=== PATIENT | female | born 1945 | race Asian ===

== ENCOUNTER 2023-02-11 18:34 | Inpatient (IN) | payer MEDICARE, OTHER ==
[~2023-02-11] VITALS: Ht 167.6 cm; Wt 72.6 kg
[~2023-02-11 18:34] MED LIST: ETOMIDATE 20 MG/ 10 ML VIAL (AMIDATE) ONE; SUCCINYLCHOLINE CHLORIDE 20 MG/ML(QUELICIN) ONE
[2023-02-11 18:49] VITALS: BP_SYST 150; PULSE 121; RESP 26; TEMP 98.3; O2SAT 80
[2023-02-11] MEDS ORDERED: fentaNYL CITRATE/PF 100 MCG/2 ML AMP IVP ONE (19:00)
[2023-02-11] MEDS ORDERED: PROPOFOL DRIP 100 ML IV ONE (19:00)
[2023-02-11] MEDS ORDERED: IPRATROPIUM BROM 0.5 MG/2.5 ML VIAL.NEB (ATROVENT) INH ONE (19:12)
[2023-02-11] MEDS ORDERED: ALBUTEROL SULFATE 0.083% 2.5 MG/3 ML VIAL.NEB INH ONE (19:12)
[2023-02-11 19:22] LABS: COVID19 ANTIGEN SOFIA FIA NEGATIVE (NEGATIVE)
[2023-02-11] MEDS ORDERED: NACL 0.9% 1,000 ML IV ONE ×3 (19:30→21:15)
[2023-02-11] MEDS ORDERED: AZITHROMYCIN 500 MG in NS 250 ML IV SCH (19:30)
[2023-02-11 19:33] LABS: INFLUENZA TYPE A Negative (NEGATIVE); INFLUENZA TYPE B NEGATIVE (NEGATIVE)
[2023-02-11 19:40] LABS: HEMOGLOBIN 11.3 g/dL (12.0-16.0); WHITE BLOOD COUNT (AUTO) 26.6 K/uL (4.8-10.8)
[2023-02-11 19:48] LABS: HEMATOCRIT 38.4 % (36-48); MEAN CORPUSCULAR HEMOGLOBIN 27 pg (27-31); MEAN CORPUSCULAR HGB CONC 30 % (32-36); MEAN CORPUSCULAR VOLUME 92 fL (79.0-98.0); PLATELET COUNT (AUTO) 494 K/uL (130-430); RED BLOOD CELL COUNT(AUTO) 4.19 MIL/uL (4.2-6.2); RED CELL DISTRIBUTION WIDTH 16.4 % (9.0-15.0)
[2023-02-11] MEDS ORDERED: AZITHROMYCIN 500 MG/VIAL (ZITHROMAX) IV ONE (19:49)
[2023-02-11] MEDS ORDERED: cefTRIAXone 2 GM VIAL ONE (19:49)
[2023-02-11 19:50] LABS: ANION GAP 16 (5-15); CALCIUM 8.7 mg/dL (8.4-11.0); CARBON DIOXIDE 20 mmol/L (23-29); CHLORIDE 102 mmol/L (98-107); CREATININE 1.49 mg/dL (0.55-1.30); GLUCOSE 263 mg/dL (74-106); POTASSIUM 4.3 mmol/L (3.5-5.1); SODIUM SERUM 138 mmol/L (136-145); UREA NITROGEN, BLOOD 18 mg/dL (8-21)
[2023-02-11 19:59] LABS: BLOOD GAS HCO3 19.2 mmol/L (21.0-27.0); BLOOD GAS PCO2 41.5 mmHg (35.0-45.0); BLOOD GAS PH 7.283 (7.350-7.450); BLOOD GAS PO2 109.6 mmHg (75.0-100.0)
[2023-02-11 20:00] LABS: ABG O2 SAT% ESTIMATE 97.5 % (94.0-100.0); ALLEN'S TEST POSITIVE (P); BLOOD GAS BASE EXCESS -7.1 mmol/L (-3.0-3.0)
[2023-02-11 20:02] LABS: INR 1.7 (0.8-1.2); PROTHROMBIN TIME 17.4 SECS (9.5-12.5)
[2023-02-11 20:17] LABS: ANISOCYTOSIS 1+; BAND % (MANUAL) 8 % (0-6); BASOPHILS % (MANUAL) 0 % (0-2); EOSINOPHILS % (MANUAL) 1 % (0-7); LYMPHOCYTES % (MANUAL) 15 % (20-46); MONOCYTES % (MANUAL) 7 % (0-11); OVALOCYTES MODERATE; PLATELET ESTIMATE INCREASED (ADEQUATE); POLYCHROMASIA 1+; TEAR DROP CELLS FEW
[2023-02-11 20:31] LABS: ALANINE AMINOTRANSFERASE 23 U/L (12-78); ALBUMIN 3.4 g/dL (3.4-4.8); ASPARTATE AMINOTRANSFERASE 26 U/L (10-37); CREATINE KINASE, TOTAL 91 U/L (26-192); TOTAL BILIRUBIN 0.5 mg/dL (0.0-1.0); TOTAL PROTEIN, SERUM 8.2 g/dL (6.4-8.3)
[2023-02-11] MEDS ORDERED: AZITHROMYCIN 500 MG in NS 250 ML IV ONE (20:45)
[2023-02-11] MEDS ORDERED: METHYLPREDNISOLONE SOD SUCC 40 MG/ML VIAL IVP ONE (21:00)
[2023-02-11] MEDS ORDERED: IPRATROPIUM/ALBUTEROL SULFATE 3 ML AMPUL.NEB (DUONEB) INH ONE (21:00)
[2023-02-11] MEDS ORDERED: LORazepam 2 MG/ML VIAL ONE (21:09)
[2023-02-11] MEDS ORDERED: NS 250 ML IV ONE (21:15)
[2023-02-11] MEDS ORDERED: NOREPINEPHRINE 4 MG/4 ML VIAL IV ONE (21:24)
[2023-02-11] MEDS ORDERED: DIGOXIN 0.5 MG/2 ML AMP IVP ONE (21:30)
[2023-02-11] MEDS ORDERED: GLUCOSE (DEXTROSE) ORAL GEL -Adults PO PRN (21:30)
[2023-02-11] MEDS ORDERED: DEXTROSE 50% JECT 50 ML DISP.SYRIN IVP PRN (21:30)
[2023-02-11] MEDS ORDERED: D5W 1,000 ML IV PRN (21:30)
[2023-02-11] MEDS ORDERED: PRAD75 PO (21:33)
[2023-02-11] MEDS ORDERED: LIP40 PO (21:33)
[2023-02-11] MEDS ORDERED: METF-379 PO (21:33)
[2023-02-11] MEDS ORDERED: FURO-150 PO (21:33)
[2023-02-11] MEDS ORDERED: CALC200T56 PO (21:33)
[2023-02-11] MEDS ORDERED: METO25TA6 PO (21:33)
[2023-02-11] MEDS ORDERED: GLIP10TA11 PO (21:33)
[2023-02-11] MEDS ORDERED: VITA1CAP PO (21:33)
[2023-02-11] MEDS ORDERED: DILT60TA3 PO (21:33)
[2023-02-11] MEDS ORDERED: EMPA25TA PO (21:34)
[2023-02-11] MEDS: NOREPINEPHRINE BITARTRATE 4 MG in D5W 246 ML IV PRN (21:40)
[2023-02-11] MEDS ORDERED: ACETAMINOPHEN 650 MG/20.3 ML UDC GT PRN (21:45)
[2023-02-11] MEDS ORDERED: ACETAMINOPHEN 650 MG SUPP.RECT RC PRN (21:45)
[2023-02-11] MEDS ORDERED: PIPERACILLIN/TAZO 3.375 GM in NS 50 ML IV ONE (22:00)
[2023-02-11] MEDS ORDERED: NOREPINEPHRINE BITARTRATE 4 MG in D5W 246 ML IV PRN (22:00)
[2023-02-11 22:12] VITALS: BP_SYST 90; PULSE 125; RESP 27; TEMP 99.2; O2SAT 97
[2023-02-11 22:18] VITALS: BP_SYST 57; PULSE 86; O2SAT 97
[2023-02-11 22:21] VITALS: PULSE 109
[2023-02-11 22:30] VITALS: BP_SYST 90; PULSE 125; RESP 27; TEMP 99.2; O2SAT 97
[2023-02-11] MEDS: METHYLPREDNISOLONE SOD SUCC 40 MG/ML VIAL IVP SCH (22:58)
[2023-02-11 23:00] VITALS: BP_SYST 102; PULSE 116; RESP 26; O2SAT 100
[2023-02-11 23:12] LABS: INR 1.7 (0.8-1.2); PROTHROMBIN TIME 17.3 SECS (9.5-12.5)
[2023-02-11] MEDS: IPRATROPIUM/ALBUTEROL SULFATE 3 ML AMPUL.NEB (DUONEB) INH SCH (23:35)
[2023-02-11] MEDS: PROPOFOL DRIP 100 ML IV PRN (23:42)
[2023-02-11 23:45] LABS: BLOOD GAS PCO2 30.2 mmHg (35.0-45.0); BLOOD GAS PH 7.341 (7.350-7.450); BLOOD GAS PO2 146.3 mmHg (75.0-100.0)
[2023-02-11 23:46] LABS: ABG O2 SAT% ESTIMATE 98.8 % (94.0-100.0); ALLEN'S TEST Y (P); BLOOD GAS BASE EXCESS -8.3 mmol/L (-3.0-3.0)
[2023-02-12] VITALS (36 sets, daily range): BP systolic 90–132; PULSE 71–125; RESP 14–28; TEMP 98.5–99.2; O2SAT 95–100
[2023-02-12] MEDS ORDERED: PIPERACILLIN/TAZOBACTAM 3.375 GM/VIAL (ZOSYN) IV ONE (00:14)
[2023-02-12] MEDS ORDERED: SODIUM BICARBONATE 8.4% JECT 50 MEQ/50 ML SYRINGE IVP ONE ×2 (00:15)
[2023-02-12] MEDS: NACL 0.9% 1,000 ML IV SCH ×2 (01:11→09:01)
[2023-02-12] MEDS: PIPERACILLIN/TAZO 3.375/DEX-IS 50 ML IV SCH ×5 (01:11→23:19)
[2023-02-12] MEDS: INSULIN REGULAR, HUMAN 100 UNITS/ML, 3 ML VIAL (humuLIN R) SUBCUT PRN ×5 (01:14→23:24)
[2023-02-12] MEDS: IPRATROPIUM/ALBUTEROL SULFATE 3 ML AMPUL.NEB (DUONEB) INH SCH ×5 (03:50→23:23)
[2023-02-12] MEDS ORDERED: NOREPINEPHRINE 4 MG/4 ML VIAL IV ONE (04:17)
[2023-02-12] MEDS: dilTIAZem HCL IVP 5 MG/ML VIAL IVP PRN (04:24)
[2023-02-12] MEDS: METHYLPREDNISOLONE SOD SUCC 40 MG/ML VIAL IVP SCH ×4 (04:24→20:37)
[2023-02-12] MEDS: PROPOFOL DRIP 100 ML IV PRN ×3 (04:54→21:08)
[2023-02-12] MEDS: NOREPINEPHRINE BITARTRATE 4 MG in D5W 246 ML IV PRN (04:54)
[2023-02-12 05:22] LABS: BASOPHILS # (AUTO) 0.2 K/uL (0.0-0.2); BASOPHILS % (AUTO) 0.8 % (0.0-2.0); HEMATOCRIT 34.1 % (36-48); HEMOGLOBIN 10.5 g/dL (12.0-16.0); LYMPHOCYTES # (AUTO) 0.3 K/uL (1.0-5.5); LYMPHOCYTES % (AUTO) 1.5 % (20.5-51.5); MEAN CORPUSCULAR HEMOGLOBIN 27 pg (27-31); MEAN CORPUSCULAR HGB CONC 31 % (32-36); MEAN CORPUSCULAR VOLUME 88 fL (79.0-98.0); MONOCYTES # (AUTO) 0.2 K/uL (0.0-1.0); MONOCYTES % (AUTO) 1.1 % (1.7-9.3); NEUTROPHILS # (AUTO) 18.3 K/uL (1.8-7.7); NEUTROPHILS % (AUTO) 96.6 % (40.0-70.0); PLATELET COUNT (AUTO) 402 K/uL (130-430); RED BLOOD CELL COUNT(AUTO) 3.87 MIL/uL (4.2-6.2); RED CELL DISTRIBUTION WIDTH 16.5 % (9.0-15.0); WHITE BLOOD COUNT (AUTO) 18.9 K/uL (4.8-10.8)
[2023-02-12 05:40] LABS: INR 1.4 (0.8-1.2); PROTHROMBIN TIME 14.4 SECS (9.5-12.5)
[2023-02-12 05:50] LABS: ALANINE AMINOTRANSFERASE 23 U/L (12-78); ANION GAP 17 (5-15); ASPARTATE AMINOTRANSFERASE 23 U/L (10-37); CALCIUM 8.1 mg/dL (8.4-11.0); CARBON DIOXIDE 20 mmol/L (23-29); CHLORIDE 103 mmol/L (98-107); CREATININE 1.39 mg/dL (0.55-1.30); GLUCOSE 314 mg/dL (74-106); PHOSPHORUS 3.9 mg/dL (2.7-4.5); POTASSIUM 3.7 mmol/L (3.5-5.1); SODIUM SERUM 140 mmol/L (136-145); TOTAL BILIRUBIN 0.9 mg/dL (0.0-1.0); TOTAL PROTEIN, SERUM 6.9 g/dL (6.4-8.3); UREA NITROGEN, BLOOD 18 mg/dL (8-21)
[2023-02-12] MEDS ORDERED: *LOVENOX 1MG/KG Q12H/PHARMACY XX PRN (08:00)
[2023-02-12] MEDS ORDERED: ENOXAPARIN SODIUM 80 MG/0.8 ML SYRINGE SUBCUT SCH (09:00)
[2023-02-12] MEDS ORDERED: DEXTROSE 50% JECT 50 ML DISP.SYRIN IVP PRN (11:45)
[2023-02-12] MEDS ORDERED: DILTIAZEM HCL 60 MG TABLET PO ONE (12:00)
[2023-02-12 14:17] LABS: BILIRUBIN,URINE NEGATIVE (NEGATIVE); BLOOD, URINE NEGATIVE (NEGATIVE); CLARITY/URINE CLEAR (CLEAR); COLOR,URINE YELLOW (YELLOW); GLUCOSE,URINE 3+ (NEGATIVE); KETONES,URINE 2+ (NEGATIVE); LEUKOCYTE ESTERASE ,URINE NEGATIVE (NEGATIVE); NITRITE, URINE NEGATIVE (NEGATIVE); PH,URINE 5.5 (5.0-8.0); PROTEIN URINE NEGATIVE (NEGATIVE); UROBILINOGEN,URINE 0.2 (0.2-1.0)
[2023-02-12 14:45] LABS: BACTERIA,URINE None Seen /HPF (None Seen); RBC,URINE 0-3 /HPF (0-3)
[2023-02-12] MEDS: DILTIAZEM HCL 60 MG TABLET PO SCH ×2 (15:13→20:36)
[2023-02-12] MEDS: AZITHROMYCIN 250 MG in NS 250 ML IV SCH (20:37)
[2023-02-12] MEDS ORDERED: DABIGATRAN ETEXILATE MESYLATE 75 MG CAPSULE PO ONE (21:00)
[2023-02-12] MEDS ORDERED: METOPROLOL TARTRATE 25 MG TABLET PO SCH (21:00)
[2023-02-13] VITALS (35 sets, daily range): BP systolic 93–124; PULSE 76–127; RESP 14–27; TEMP 96.8–98; O2SAT 91–98
[2023-02-13] MEDS: NACL 0.9% 1,000 ML IV SCH ×2 (00:58→05:45)
[2023-02-13] MEDS: IPRATROPIUM/ALBUTEROL SULFATE 3 ML AMPUL.NEB (DUONEB) INH SCH ×6 (03:05→23:00)
[2023-02-13] MEDS: METHYLPREDNISOLONE SOD SUCC 40 MG/ML VIAL IVP SCH ×4 (03:13→20:57)
[2023-02-13 04:16] LABS: BASOPHILS % (AUTO) 0.1 % (0.0-2.0); EOSINOPHILS % (AUTO) 0.2 % (0.0-4.0); HEMATOCRIT 29.9 % (36-48); HEMOGLOBIN 9.3 g/dL (12.0-16.0); LYMPHOCYTES # (AUTO) 0.7 K/uL (1.0-5.5); LYMPHOCYTES % (AUTO) 7.6 % (20.5-51.5); MEAN CORPUSCULAR HEMOGLOBIN 27 pg (27-31); MEAN CORPUSCULAR HGB CONC 31 % (32-36); MEAN CORPUSCULAR VOLUME 88 fL (79.0-98.0); MONOCYTES # (AUTO) 0.3 K/uL (0.0-1.0); MONOCYTES % (AUTO) 2.8 % (1.7-9.3); NEUTROPHILS # (AUTO) 8.3 K/uL (1.8-7.7); NEUTROPHILS % (AUTO) 89.3 % (40.0-70.0); PLATELET COUNT (AUTO) 320 K/uL (130-430); RED BLOOD CELL COUNT(AUTO) 3.41 MIL/uL (4.2-6.2); WHITE BLOOD COUNT (AUTO) 9.3 K/uL (4.8-10.8)
[2023-02-13] MEDS: dilTIAZem HCL IVP 5 MG/ML VIAL IVP PRN (04:25)
[2023-02-13 04:31] LABS: INR 1.1 (0.8-1.2); PROTHROMBIN TIME 11.6 SECS (9.5-12.5)
[2023-02-13 04:32] LABS: ANION GAP 11 (5-15); CARBON DIOXIDE 25 mmol/L (23-29); CHLORIDE 109 mmol/L (98-107); CREATININE 1.11 mg/dL (0.55-1.30); GLUCOSE 211 mg/dL (74-106); POTASSIUM 3.5 mmol/L (3.5-5.1); SODIUM SERUM 145 mmol/L (136-145); UREA NITROGEN, BLOOD 19 mg/dL (8-21)
[2023-02-13] MEDS: PROPOFOL DRIP 100 ML IV PRN ×3 (04:32→19:33)
[2023-02-13 04:50] LABS: ALANINE AMINOTRANSFERASE 19 U/L (12-78); ALBUMIN 2.8 g/dL (3.4-4.8); ASPARTATE AMINOTRANSFERASE 19 U/L (10-37); CHOLESTEROL 101 mg/dL (<200); HDL CHOLESTEROL 33 mg/dL (>55); LIPASE 30 U/L (16-77); THYROID STIMULATING HORMONE 0.53 uIu/mL (0.34-4.82); TOTAL BILIRUBIN 0.8 mg/dL (0.0-1.0); TOTAL PROTEIN, SERUM 6.4 g/dL (6.4-8.3); TRIGLYCERIDES 161 mg/dL (30-150)
[2023-02-13] MEDS: PIPERACILLIN/TAZO 3.375/DEX-IS 50 ML IV SCH ×4 (05:36→23:41)
[2023-02-13] MEDS: INSULIN REGULAR, HUMAN 100 UNITS/ML, 3 ML VIAL (humuLIN R) SUBCUT PRN ×3 (05:40→18:06)
[2023-02-13] MEDS ORDERED: DABIGATRAN ETEXILATE MESYLATE 75 MG CAPSULE PO SCH (09:00)
[2023-02-13] MEDS: DILTIAZEM HCL 60 MG TABLET PO SCH ×3 (09:22→20:56)
[2023-02-13] MEDS: ATORVASTATIN 20 MG TABLET PO SCH (09:22)
[2023-02-13 09:25] LABS: ABG O2 SAT% ESTIMATE 98.2 % (94.0-100.0); ALLEN'S TEST POSITIVE (P); BLOOD GAS BASE EXCESS -4.3 mmol/L (-3.0-3.0); BLOOD GAS PCO2 30.5 mmHg (35.0-45.0); BLOOD GAS PH 7.412 (7.350-7.450); BLOOD GAS PO2 112.7 mmHg (75.0-100.0)
[2023-02-13] MEDS ORDERED: DABIGATRAN ETEXILATE MESYLATE 75 MG CAPSULE PO ONE (09:30)
[2023-02-13] MEDS: METOPROLOL TARTRATE 25 MG TABLET PO SCH ×2 (11:19→23:41)
[2023-02-13] MEDS ORDERED: FUROSEMIDE 20 MG/2 ML VIAL IVP ONE (12:45)
[2023-02-13] MEDS: DABIGATRAN ETEXILATE MESYLATE 75 MG CAPSULE PO SCH (20:55)
[2023-02-13] MEDS: AZITHROMYCIN 250 MG in NS 250 ML IV SCH (20:56)
[2023-02-14] VITALS (39 sets, daily range): BP systolic 100–146; PULSE 66–146; RESP 12–40; TEMP 96.9–99.4; O2SAT 91–97
[2023-02-14] MEDS: INSULIN REGULAR, HUMAN 100 UNITS/ML, 3 ML VIAL (humuLIN R) SUBCUT PRN ×5 (00:07→23:41)
[2023-02-14] MEDS: PROPOFOL DRIP 100 ML IV PRN ×2 (01:09→06:31)
[2023-02-14] MEDS: NACL 0.9% 1,000 ML IV SCH ×2 (01:11→19:45)
[2023-02-14] MEDS: IPRATROPIUM/ALBUTEROL SULFATE 3 ML AMPUL.NEB (DUONEB) INH SCH ×6 (03:15→23:10)
[2023-02-14] MEDS: METHYLPREDNISOLONE SOD SUCC 40 MG/ML VIAL IVP SCH ×3 (03:56→21:18)
[2023-02-14 05:20] LABS: BASOPHILS % (AUTO) 0.1 % (0.0-2.0); HEMATOCRIT 30.1 % (36-48); HEMOGLOBIN 9.5 g/dL (12.0-16.0); LYMPHOCYTES # (AUTO) 0.4 K/uL (1.0-5.5); LYMPHOCYTES % (AUTO) 5.6 % (20.5-51.5); MEAN CORPUSCULAR HEMOGLOBIN 28 pg (27-31); MEAN CORPUSCULAR HGB CONC 32 % (32-36); MEAN CORPUSCULAR VOLUME 88 fL (79.0-98.0); MONOCYTES # (AUTO) 0.3 K/uL (0.0-1.0); MONOCYTES % (AUTO) 4.5 % (1.7-9.3); NEUTROPHILS % (AUTO) 89.8 % (40.0-70.0); PLATELET COUNT (AUTO) 362 K/uL (130-430); RED BLOOD CELL COUNT(AUTO) 3.41 MIL/uL (4.2-6.2); RED CELL DISTRIBUTION WIDTH 16.5 % (9.0-15.0); WHITE BLOOD COUNT (AUTO) 6.7 K/uL (4.8-10.8)
[2023-02-14 05:34] LABS: ALANINE AMINOTRANSFERASE 25 U/L (12-78); ALBUMIN 2.8 g/dL (3.4-4.8); ANION GAP 10 (5-15); ASPARTATE AMINOTRANSFERASE 19 U/L (10-37); CALCIUM 7.9 mg/dL (8.4-11.0); CARBON DIOXIDE 26 mmol/L (23-29); CHLORIDE 114 mmol/L (98-107); CREATININE 1.11 mg/dL (0.55-1.30); GLUCOSE 294 mg/dL (74-106); PHOSPHORUS 2.4 mg/dL (2.7-4.5); POTASSIUM 3.4 mmol/L (3.5-5.1); SODIUM SERUM 150 mmol/L (136-145); TOTAL BILIRUBIN 0.8 mg/dL (0.0-1.0); TOTAL PROTEIN, SERUM 6.5 g/dL (6.4-8.3); UREA NITROGEN, BLOOD 32 mg/dL (8-21)
[2023-02-14] MEDS: PIPERACILLIN/TAZO 3.375/DEX-IS 50 ML IV SCH ×4 (05:42→23:42)
[2023-02-14] MEDS ORDERED: KCL 40 mEq in 100 mL (PREMIX) 100 ML IV ONE (08:00)
[2023-02-14] MEDS ORDERED: FUROSEMIDE 20 MG/2 ML VIAL IVP SCH (09:00)
[2023-02-14] MEDS: ATORVASTATIN 20 MG TABLET PO SCH (09:21)
[2023-02-14] MEDS: DILTIAZEM HCL 60 MG TABLET PO SCH ×3 (09:22→21:19)
[2023-02-14] MEDS: DABIGATRAN ETEXILATE MESYLATE 75 MG CAPSULE PO SCH ×2 (09:28→21:20)
[2023-02-14] MEDS: METOPROLOL TARTRATE 25 MG TABLET PO SCH ×2 (11:54→23:42)
[2023-02-14] MEDS ORDERED: LORazepam 2 MG/ML VIAL IVP ONE (12:15)
[2023-02-14 12:28] LABS: BLOOD GAS PCO2 28.5 mmHg (35.0-45.0); BLOOD GAS PH 7.494 (7.350-7.450)
[2023-02-14 12:29] LABS: ABG O2 SAT% ESTIMATE 96.4 % (94.0-100.0); ALLEN'S TEST POSITIVE (P); BLOOD GAS BASE EXCESS -0.5 mmol/L (-3.0-3.0); BLOOD GAS HCO3 21.4 mmol/L (21.0-27.0); BLOOD GAS PO2 76.6 mmHg (75.0-100.0)
[2023-02-14] MEDS ORDERED: DIGOXIN 0.5 MG/2 ML AMP IVP ONE (15:00)
[2023-02-14] MEDS ORDERED: METHYLPREDNISOLONE SOD SUCC 40 MG/ML VIAL IVP ONE (15:00)
[2023-02-14] MEDS ORDERED: FUROSEMIDE 20 MG/2 ML VIAL IVP ONE (15:15)
[2023-02-14] MEDS ORDERED: FUROSEMIDE 40 MG/4 ML VIAL IVP ONE (15:30)
[2023-02-14] MEDS ORDERED: POTASSIUM CHLORIDE 20 MEQ/PKT PACKET PO ONE (15:45)
[2023-02-14 17:04] LABS: BLOOD GAS PCO2 29.8 mmHg (35.0-45.0); BLOOD GAS PH 7.503 (7.350-7.450)
[2023-02-14 17:05] LABS: ABG O2 SAT% ESTIMATE 96.9 % (94.0-100.0); ALLEN'S TEST POSITIVE (P); BLOOD GAS BASE EXCESS 0.9 mmol/L (-3.0-3.0); BLOOD GAS HCO3 22.9 mmol/L (21.0-27.0)
[2023-02-14] MEDS: AZITHROMYCIN 250 MG in NS 250 ML IV SCH (21:18)
[2023-02-15] VITALS (22 sets, daily range): BP systolic 110–140; PULSE 62–116; RESP 14–24; TEMP 97.4–99.1; O2SAT 91–97
[2023-02-15] MEDS: IPRATROPIUM/ALBUTEROL SULFATE 3 ML AMPUL.NEB (DUONEB) INH SCH ×4 (03:11→16:03)
[2023-02-15 05:17] LABS: BASOPHILS % (AUTO) 0.1 % (0.0-2.0); EOSINOPHILS % (AUTO) 0.1 % (0.0-4.0); HEMOGLOBIN 10.4 g/dL (12.0-16.0); LYMPHOCYTES # (AUTO) 0.5 K/uL (1.0-5.5); LYMPHOCYTES % (AUTO) 8.3 % (20.5-51.5); MEAN CORPUSCULAR HEMOGLOBIN 28 pg (27-31); MEAN CORPUSCULAR HGB CONC 32 % (32-36); MEAN CORPUSCULAR VOLUME 88 fL (79.0-98.0); MONOCYTES # (AUTO) 0.2 K/uL (0.0-1.0); MONOCYTES % (AUTO) 3.6 % (1.7-9.3); NEUTROPHILS # (AUTO) 5.5 K/uL (1.8-7.7); NEUTROPHILS % (AUTO) 87.9 % (40.0-70.0); PLATELET COUNT (AUTO) 337 K/uL (130-430); RED BLOOD CELL COUNT(AUTO) 3.77 MIL/uL (4.2-6.2); RED CELL DISTRIBUTION WIDTH 15.9 % (9.0-15.0); WHITE BLOOD COUNT (AUTO) 6.2 K/uL (4.8-10.8)
[2023-02-15 05:35] LABS: ALANINE AMINOTRANSFERASE 29 U/L (12-78); ALBUMIN 3.1 g/dL (3.4-4.8); ANION GAP 10 (5-15); ASPARTATE AMINOTRANSFERASE 18 U/L (10-37); CALCIUM 7.8 mg/dL (8.4-11.0); CARBON DIOXIDE 30 mmol/L (23-29); CHLORIDE 108 mmol/L (98-107); CREATININE 1.15 mg/dL (0.55-1.30); GLUCOSE 275 mg/dL (74-106); PHOSPHORUS 2.9 mg/dL (2.7-4.5); POTASSIUM 3.7 mmol/L (3.5-5.1); SODIUM SERUM 148 mmol/L (136-145); TOTAL BILIRUBIN 0.8 mg/dL (0.0-1.0); TOTAL PROTEIN, SERUM 6.9 g/dL (6.4-8.3); UREA NITROGEN, BLOOD 32 mg/dL (8-21)
[2023-02-15] MEDS: INSULIN REGULAR, HUMAN 100 UNITS/ML, 3 ML VIAL (humuLIN R) SUBCUT PRN ×3 (06:00→16:59)
[2023-02-15] MEDS: PIPERACILLIN/TAZO 3.375/DEX-IS 50 ML IV SCH ×2 (06:01→12:05)
[2023-02-15] MEDS: METHYLPREDNISOLONE SOD SUCC 40 MG/ML VIAL IVP SCH (06:29)
[2023-02-15] MEDS: DILTIAZEM HCL 60 MG TABLET PO SCH ×3 (08:41→16:33)
[2023-02-15] MEDS: ATORVASTATIN 20 MG TABLET PO SCH (08:41)
[2023-02-15] MEDS: DABIGATRAN ETEXILATE MESYLATE 75 MG CAPSULE PO SCH (08:44)
[2023-02-15] MEDS ORDERED: FUROSEMIDE 20 MG/2 ML VIAL IVP SCH (09:00)
[2023-02-15] MEDS ORDERED: DIGOXIN 0.5 MG/2 ML AMP IVP SCH (09:00)
[2023-02-15 10:12] LABS: ABG O2 SAT% ESTIMATE 94.6 % (94.0-100.0); ALLEN'S TEST POSITIVE (P); BLOOD GAS BASE EXCESS 3.3 mmol/L (-3.0-3.0); BLOOD GAS HCO3 25.7 mmol/L (21.0-27.0); BLOOD GAS PCO2 32.9 mmHg (35.0-45.0); BLOOD GAS PH 7.511 (7.350-7.450); BLOOD GAS PO2 64.9 mmHg (75.0-100.0)
[2023-02-15] MEDS: METOPROLOL TARTRATE 25 MG TABLET PO SCH (12:05)
[2023-02-15] MEDS ORDERED: METH40VI46 IVP (14:54)
[2023-02-15] MEDS ORDERED: DIGO125T PO (14:54)
[2023-02-15] MEDS ORDERED: METO25TA6 PO (14:54)
[2023-02-15] MEDS ORDERED: DILT60TA3 PO (14:54)
[2023-02-15] MEDS ORDERED: PIPE3.379 IV (14:54)
[2023-02-15] MEDS ORDERED: FURO-150 PO (15:45)
[2023-02-15] MEDS ORDERED: METHYLPREDNISOLONE SOD SUCC 40 MG/ML VIAL IVP SCH (21:00)
[2023-02-16] MEDS ORDERED: DIGOXIN 0.125 MG TABLET PO SCH (09:00)
== END 2023-02-15 17:05 | disposition short-term general hospital (02) | DRG 871 ==
LOC: SED 18:34 → SMU 20:48 → SIC 21:21
PROVIDERS: ADMIT Internal Medicine; ATTEND Internal Medicine
PROC: 5A1945Z Respiratory Ventilation, 24-96 Consecutive Hours (ICD-10-PCS; principal; 2023-02-11)
PROC: 0BH17EZ Insertion of Endotracheal Airway into Trachea, Via Natural or Artificial Opening (ICD-10-PCS; 2023-02-11)
PROC: 3E0A3GC Introduction of Other Therapeutic Substance into Bone Marrow, Percutaneous Approach (ICD-10-PCS; 2023-02-11)
PROC: 5A09457 Assistance with Respiratory Ventilation, 24-96 Consecutive Hours, Continuous Positive Airway Pressure (ICD-10-PCS; 2023-02-14)
DX: A41.9 Sepsis, unspecified organism (principal); I50.21 Acute systolic (congestive) heart failure; J18.9 Pneumonia, unspecified organism; R65.21 Severe sepsis with septic shock; J96.01 Acute respiratory failure with hypoxia; I48.20 Chronic atrial fibrillation, unspecified; J45.901 Unspecified asthma with (acute) exacerbation; E44.1 Mild protein-calorie malnutrition; Z20.822 Contact with and (suspected) exposure to COVID-19; E78.5 Hyperlipidemia, unspecified; E11.9 Type 2 diabetes mellitus without complications; I11.0 Hypertensive heart disease with heart failure; Z68.25 Body mass index [BMI] 25.0-25.9, adult
CPT/HCPCS: 36415; 36600; 71045; 80053; 80061; 81000; 81001; 81015; 82306; 82550; 82785; 82803; 82962; 83037; 83605; 83690; 83735; 83880; 84100; 84443; 84484; 85007; 85025; 85027; 85610-TC; 85730-TC; 86738; 87040; 87070-TC; 87081; 87205-TC; 87305; 87449; 92610-GN; 93005; 93306; 94002; 94003; 94640; 94660; 94760; 99291; J0330; J0456; J0696; J1030; J1160; J1650; J1815; J1940; J2060; J2543; J2704; J3010; J3480; J3490; J7050; J7060